=== PATIENT | male | born 1965 ===

== ENCOUNTER 2019-01-03 12:41 | Emergency (ER) | payer OTHER ==
[~2019-01-03] VITALS: Ht 175.3 cm; Wt 79.5 kg
[2019-01-03 13:53] VITALS: BP 140/74
== END 2019-01-03 13:57 | disposition home or self-care (01) ==
LOC: EMS 12:44
DX: S01.81XA Laceration without foreign body of other part of head, initial encounter (principal); W26.8XXA Contact with other sharp object(s), not elsewhere classified, initial encounter; Y93.89 Activity, other specified; Y92.218 Other school as the place of occurrence of the external cause; Y99.0 Civilian activity done for income or pay
CPT/HCPCS: 12011